=== PATIENT | female | born 1995 | race Caucasian/White ===

== ENCOUNTER → 2019-05-15 09:20 | Outpatient (CLI) | payer OTHER, SELFPAY ==
--- NOTE | 2019-05-15 09:26 | US_ITS ---
PROCEDURE: US BREAST RT COMPLETE Patient Age:24Y CLINICAL INDICATION: RT BREAST NODULE Physician feels area right lower breast COMPARISON: No exams were available for comparison FINDINGS: Survey of the entire breast performed including axillary survey. But cyst nor discrete nodule evident. No mass evident. Dense of fibrous breast tissue encounter throughout right breast, perhaps slightly more evident towards inferior right breast. This dense tissue may may account for the palpable region described. But no focal area of concern on ultrasound. 3 unremarkable benign-appearing axillary lymph nodes towards right axilla-largest 9 mm size;-these appear normal IMPRESSION: No significant findings right breast Today's right breast ultrasound reveals no cyst or solid nodule Dense fibrous tissue throughout slightly more notable towards inferior breast-and may account for the palpable region Birads 1 Negative Dictated by: Man Anton MD 05/22/2019 21:34 Electronically signed by Man Anton MD in [place] 05/22/2019 21:34
== END ==
PROVIDERS: PCP Emergency Medicine; Visit Provider Nurse Practitioner Family
DX: N63.14 Unspecified lump in the right breast, lower inner quadrant (principal)
CPT/HCPCS: 76641

== ENCOUNTER → 2021-03-20 17:13 | Outpatient (CLI) | payer BC, SELFPAY ==
[2021-03-20 17:45] LABS: Basophils # 0.1 K/mm3 (0-0.2); Basophils % 0.9 % (0.1-2.0); Eosinophils # 0.3 K/mm3 (0.0-0.4); Eosinophils % 2.6 % (0.1-12.0); Hematocrit 38.6 % (37.0-47.0); Hemoglobin 13.3 g/dL (12.2-16.2); Lymphocytes # 2.3 K/mm3 (0.7-4.5); Lymphocytes % 23.6 % (10-50); Mean Corpuscular HGB Conc 34.5 g/dL (31.8-35.4); Mean Corpuscular Hemoglobin 27.7 pg (27.0-31.2); Mean Corpuscular Volume 80.4 fl (81-99); Monocytes # 0.5 K/mm3 (0.1-1.0); Monocytes % 4.8 % (1.7-9.3); Neutrophils # 6.7 K/mm3 (1.8-7.8); Neutrophils % 68.1 % (37.0-80.0); Platelet Count 378 K/mm3 (142-424); Red Blood Count 4.81 M/mm3 (4.20-5.40); Red Cell Distribution Width 13.9 % (11.5-17.5); White Blood Count 9.8 K/mm3 (4.8-10.8)
[2021-03-20 19:13] LABS: Chloride 105 mmol/L (98-107)
[2021-03-20 19:14] LABS: Sodium 142 mmol/L (136-145)
[2021-03-20 19:16] LABS: Alanine Aminotransferase 30 U/L (12-78); Amylase 51 U/L (30-110); Aspartate Amino Transferase 26 U/L (14-36); Blood Urea Nitrogen 14 mg/dl (7-17); Carbon Dioxide 26 mmol/L (22.0-30.0); Estimated Glomerular Filt Rate 87 ml/min (>60); GFR (African American) 106 ML/MIN (>60)
[2021-03-20 19:17] LABS: Albumin Level 4.8 g/dl (3.5-5.0); Albumin/Globulin Ratio 1.7 (1.1-1.8); Alkaline Phosphatase 88 U/L (38-126); Bilirubin,Total 0.5 mg/dl (0.2-1.3); Calcium 9.5 mg/dl (8.4-10.2); Globulin 2.9 g/dL (1.3-3.2); Glucose 98 mg/dl (74-100); Lipase 88 U/L (23-300); Total Protein,Serum 7.7 g/dl (6.3-8.2)
[2021-03-20 19:50] LABS: Thyroid Stimulating Hormone 8.03 uIU/mL (0.465-4.68)
[2021-03-23 00:05] LABS: Deamidated Gliadin Abs, IgA 20 units (0-19); Deamidated Gliadin Abs, IgG 22 units (0-19); Tissue Transglutaminase IgA Ab 5 U/mL (0-3); Tissue Transglutaminase IgG Ab 3 U/mL (0-5)
[2021-03-23 15:38] LABS: Endomysial IgA Antibody Positive (Negative)
[2021-03-24 15:45] LABS: F001-IgE Egg White <0.10 kU/L (Class 0); F002-IgE Milk 2.59 kU/L (Class III); F003-IgE Codfish <0.10 kU/L (Class 0); F004-IgE Wheat <0.10 kU/L (Class 0); F010-IgE Sesame Seed <0.10 kU/L (Class 0); F013-IgE Peanut <0.10 kU/L (Class 0); F014-IgE Soybean <0.10 kU/L (Class 0); F024-IgE Shrimp <0.10 kU/L (Class 0); F256-IgE Walnut <0.10 kU/L (Class 0); F338-IgE Scallop <0.10 kU/L (Class 0)
[2021-03-26 09:53] LABS: Reticulin IgA Antibody Negative titer (Neg:<1:2.5)
== END ==
PROVIDERS: Visit Provider Physician Assistant
DX: R00.2 Palpitations (principal); R11.10 Vomiting, unspecified
CPT/HCPCS: 36415; 80053; 82150; 83516; 83690; 84443; 85025; 86003; 86008; 86255; 86256; 93225; 93226

== ENCOUNTER → 2021-08-16 13:26 | Outpatient (CLI) | payer SELFPAY | LOC: COVID.OUT 13:28 | PROVIDERS: PCP Physician Assistant; Visit Provider Nurse Practitioner Family | DX: U07.1 COVID-19 (principal) | CPT/HCPCS: C9803; U0003; U0005 ==

== ENCOUNTER 2022-02-04 18:58 | Emergency (ER) | payer BC, SELFPAY ==
[2022-02-04 19:23] VITALS: BP 115/78; PULSE 78; RESP 16; TEMP 36.9; O2SAT 98; BMI 25.7
[2022-02-04 19:31] VITALS: BP 115/78; PULSE 78; RESP 16; TEMP 36.9; O2SAT 98; BMI 29.2
--- NOTE | 2022-02-04 19:40 | HMH.EDUTC ---
[facility] Disposition Clinical Impression: Perforation of left tympanic membrane Otitis media Qualifiers: Otitis media type: suppurative Chronicity: acute Laterality: bilateral Recurrence: non-recurrent Spontaneous tympanic membrane rupture: with spontaneous rupture Qualified Code(s): H66.013 - Acute suppurative otitis media with spontaneous rupture of ear drum, bilateral Disposition: Home, Self-Care Condition on Discharge: Good Instructions: How to Instill Ear Drops, Middle Ear Infection, DI for Tympanic Membrane Perforation-Adult Additional Instructions: Drink plenty of fluids. Take tylenol or ibuprofen for pain or fever. Take the medications as directed. Use the ciprodex ear drops as directed. If your insurance will not cover these ear drops, then don't spend a bunch of money on them. The oral antibiotics will work by themselves. Follow up with your regular doctor. GO TO THE ER FOR ANY WORSENING SYMPTOMS Prescriptions: Amoxicillin/Potassium Clav [Augmentin 500mg tab] 500 mg PO TID 10 Days #30 tab Transmission Status: Pending to [id number] Ciprofloxacin HCl/Dexameth [Cipro 0.3%-Dex 0.1% Otic Susp 7.5mL] 2 drops OT BID 7 Days #1 ml Transmission Status: Pending to [id number] methylPREDNISolone [Medrol] 4 mg PO DIRECTED 6 Days #21 packet Transmission Status: Pending to [id number] Referrals: Roland Olivarez MD [Primary Care Provider] - Forms: Work/School Release Time of Disposition: 19:52 Medical Decision Making - Medical Records Medical records reviewed: No: I reviewed the patient's medical records. - Jason Inquiry Pt receiving controlled substance: No Vital Signs: 02/04/22 19:23 02/04/22 19:31 02/04/22 19:53 Temperature 98.5 F 98.5 F 98.5 F Temperature Source Oral Oral Pulse Rate 78 Pulse Rate [Right] 78 78 Respiratory Rate 16 16 16 Blood Pressure 115/78 Blood Pressure [Right Arm] 115/78 115/78 Blood Pressure Mean [Right Arm] 90 90 Blood Pressure Source [Right Arm] Automatic Cuff Blood Pressure Position [Right Arm] Sitting 02 Sat by Pulse Oximetry 98 98 Oxygen Delivery Method Room Air [facility] HPI - General Stated complaint: Hold in L Ear drum, pain can't hear Time Seen by Provider: 02/04/22 19:40 Description of Symptoms (Recalled from Triage Doc. by RN): patient comes in today with complaints of left ear pain, loss of hearing in that ear and drainage. patient does state that she has a small hole in her eardrum that has been there since she was a child HEENT Symptoms (Recalled from RN notes): Yes Resp Symptoms (Recalled from RN notes): No Skin Symptoms (Recalled from RN notes): No MS Symptoms (Recalled from RN notes): No Functional Status (Recalled from RN notes): wnl - History of Present Illness Provider Complaint: Over the past 3 days, she has had worsening left ear pain. Now, she is having pain and decreased hearing in that ear. She states that she has had some bloody drainage from that ear on her pillow in the mornings for the past 2 days. 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 Onset (ago): hour(s) - Related Data Home Medications Medication Instructions Recorded Confirmed etonogestrel 68 mg subdermal SUBDERMAL each 07/25/18 12/03/21 implant escitalopram oxalate 10 mg tablet 10 mg PO DAILY 06/27/21 12/03/21 hydroxyzine HCl 10 mg tablet 10 mg PO HS 06/27/21 12/03/21 levothyroxine 25 mcg capsule 25 mcg PO DAILY 06/27/21 12/03/21 Previous Rx's Medication Instructions Recorded estradiol 2 mg tablet 2 mg PO DAILY #30 tab 01/15/22 Amoxicillin/Potassium Clav 500 mg PO TID 10 Days #30 tab 02/04/22 [Augmentin 500mg tab] Ciprofloxacin HCl/Dexameth [Cipro 2 drops OT BID 7 Days #1 ml 02/04/22 0.3%-Dex 0.1% Otic Susp 7.5mL] methylPREDNISolone [Medrol] 4 mg PO DIRECTED 6 Days #21 02/04/22 packet Allergies Allergy/AdvReac Type Nicole
[2022-02-04 19:53] VITALS: BP 115/78; PULSE 78; RESP 16; TEMP 36.9
== END 2022-02-04 19:54 | disposition home or self-care (01) ==
PROVIDERS: Emergency Provider Nurse Practitioner Family; PCP Family Medicine
DX: H66.013 Acute suppurative otitis media with spontaneous rupture of ear drum, bilateral (principal)
CPT/HCPCS: 99212; G0463

== ENCOUNTER 2022-03-30 11:03 | Emergency (ER) | payer BC, SELFPAY ==
[2022-03-30 11:40] VITALS: BP 116/81; PULSE 64; RESP 19; TEMP 36.9; O2SAT 98; BMI 30.7
--- NOTE | 2022-03-30 12:07 | HMH.EDUTC ---
[facility] [place] Disposition Clinical Impression: URI (upper respiratory infection) Qualifiers: URI type: unspecified URI Qualified Code(s): J06.9 - Acute upper respiratory infection, unspecified Disposition: Home, Self-Care Condition on Discharge: Good Instructions: Sinusitis, DI for Sinusitis, Sore Throat, DI for Fever (Symptom) -- Adult, DI for COVID-19 (Suspected or Confirmed ) Additional Instructions: *Monitor Temp, Over the counter Motrin or Tylenol as directed/as needed Tylenol every 4 hours and Motrin every 6 hours (as long as your family doctor has told you that you can take it) for fever or pain. and straight to ER if unable to lower temp less than 101.0 after medication given *Warm salt water gargles may help to soothe the throat *Throat Lozenges *Warm fluids like tea with honey may help to soothe the throat *Sleep elevated *Humidifier/Vaporizer Follow up IMMEDIATELY for new or worsening symptoms or no Noticeable improvement over the next 48-72 hours. 911 for difficulty breathing or swallowing You were tested for today for COVID19 your test result should be back in the next 24-48 hours, you check your results on the [facility] My Health Portal Make sure to take your Vitamins Vit. C Vit D and Zinc if you can take them Prescriptions: guaiFENesin [Mucinex 600mg tablet] 1 - 2 tab PO Q12HP PRN #20 tab PRN Reason: Congestion Transmission Status: Pending to [facility] methylPREDNISolone [Medrol 4mg tab] 4 mg PO DIRECTED #21 tab Transmission Status: Pending to [facility] Cefdinir [Omnicef 300mg Capsule] 300 mg PO BID #14 cap Transmission Status: Pending to [facility] Referrals: Roland Olivarez MD [Primary Care Provider] - As needed Forms: Work/School Release Time of Disposition: 12:18 Medical Decision Making - Jason Inquiry Pt receiving controlled substance: No Jason was queried for this patient: No Vital Signs: 03/30/22 11:40 Temperature 98.5 F Temperature Source Oral Pulse Rate [Right Brachial] 64 Respiratory Rate 19 Blood Pressure [Right Arm] 116/81 Blood Pressure Mean [Right Arm] 92 Blood Pressure Source [Right Arm] Automatic Cuff Blood Pressure Position [Right Arm] Sitting 02 Sat by Pulse Oximetry 98 Oxygen Delivery Method Room Air Orders (Tests/Meds): ORDERS Category Date Time Status Covid-19 Nasal PCR ([facility]) Routine Lab 03/30/22 11:37 Ordered Medical Decision Narrative: denies [facility] [place] HPI - General Stated complaint: chest hurting, cough, can't smell Time Seen by Provider: 03/30/22 12:07 Mode of Arrival: Ambulatory Source of Information: Patient Limitations: No Limitations Description of Symptoms (Recalled from Triage Doc. by RN): PATIENT C/O CHEST CONGESTION, BODY ACHES, LOSS OF SMELL, AND HEADACHE X 1 WEEK. REPORTS A POSITIVE COVID TEST AT HOME HEENT Symptoms (Recalled from RN notes): Yes Resp Symptoms (Recalled from RN notes): No Skin Symptoms (Recalled from RN notes): No MS Symptoms (Recalled from RN notes): Yes Functional Status (Recalled from RN notes): WNL - History of Present Illness Provider Complaint: Patient states that she started getting sick over a week ago scratchy throat, sinus congestion and pressure and cough States that she took a home COVID test then and it was negative States that she hasnt got any better and was feeling worse and yesterday noticed she couldnt taste or smell anything so she took another home COVID test and it was positive so today she came in to get checked out - Related Data Home Medications Medication Instructions Recorded Confirmed escitalopram oxalate 10 mg tablet 10 mg PO DAILY 06/27/21 03/30/22 levothyroxine 25 mcg capsule 25 mcg PO DAILY 06/27/21 03/30/22 Previous Rx's Medication Instructions Recorded Cefdinir [Omnicef 300mg Capsule] 300 mg PO BID #14 cap 03/30/22 guaiFENesin [Mucinex 600mg tablet] 1 - 2 tab PO Q12HP PRN #20 tab 03/30/22 methylPREDNISolone [Medrol 4mg 4 mg PO DIRECTE
[2022-03-30 12:26] VITALS: BP 116/81; PULSE 64; RESP 19; TEMP 36.9; O2SAT 98
== END 2022-03-30 12:38 | disposition home or self-care (01) ==
PROVIDERS: Emergency Provider Nurse Practitioner; PCP Family Medicine
DX: J06.9 Acute upper respiratory infection, unspecified (principal); Z20.822 Contact with and (suspected) exposure to COVID-19
CPT/HCPCS: 99212; C9803; G0463; U0003; U0005

== ENCOUNTER 2022-06-01 15:44 | Emergency (ER) | payer BC, SELFPAY ==
--- NOTE | 2022-06-01 16:01 | EXP.UTC ---
Discharge Plan Disposition Patient Disposition: Home, Self-Care Condition: Good Prescriptions Prescriptions: New azithromycin [Zithromax] 250 mg tablet 250 mg PO UD DOSE PK Qty: 6 0RF Rx Instructions: Take two (2) tablets today, then one (1) tablet days #2 thru #5 [id number] [Bromfed DM] 2-30-10 mg/5 mL Syrup 5 ml PO Q6H PRN (Reason: Cough) Qty: 240 0RF No Action escitalopram oxalate [Lexapro] 10 mg tablet 10 mg PO DAILY levothyroxine 25 mcg capsule 25 mcg PO DAILY methylprednisolone 4 MG tablet 4 mg PO DIRECTED Qty: 21 0RF Rx Instructions: Take as directed on package instructions cefdinir 300 MG capsule 300 mg PO BID Qty: 14 0RF guaifenesin 600 MG tablet extended release 12hr 1 - 2 tab PO Q12HP PRN (Reason: Congestion) Qty: 20 0RF Referrals Follow up/Referrals: Roland Olivarez MD [Primary Care Provider] - See instructions Activity Restrictions/Add. Instructions Additional Instructions/Restrictions: Drink plenty of fluids. Take tylenol or ibuprofen for pain or fever. Take the medications as directed. Follow up with your regular doctor. GO TO THE ER FOR ANY WORSENING SYMPTOMS Clinical Impressions Clinical Impression: Sinusitis, Viral syndrome Stand Alone Forms Stand Alone Forms: Work/School Release Instructions Patient Instructions: Sinusitis, DI for Sinusitis, Coronavirus Disease 2019, Preventing the Spread of Coronavirus Discharge Instructions Discharge ED Provider: Santos Chou [facility] HPI General Stated complaint: sore throat,nausea,cough Time Seen by Provider: 06/01/22 16:01 History of Present Illness Provider Complaint: She states that for the past 4 days she has had low grade fever, chills, sinus congestion and she has felt bad. Related Data Home Medications Medication Instructions Recorded Confirmed escitalopram oxalate 10 mg tablet 10 mg PO DAILY Anxiety 06/27/21 03/30/22 (Lexapro) levothyroxine 25 mcg capsule 25 mcg PO DAILY HYPOTHYROID 06/27/21 03/30/22 Previous Rx's Medication Instructions Recorded cefdinir 300 mg capsule 300 mg PO BID #14 caps 03/30/22 guaifenesin 600 mg tablet, 1 - 2 tab PO Q12HP PRN Congestion 03/30/22 extended release 12 hr #20 tabs methylprednisolone 4 mg tablet 4 mg PO DIRECTED #21 tabs 03/30/22 azithromycin 250 mg tablet 250 mg PO UD DOSE PK #6 tabs 06/01/22 (Zithromax) wwykjaqcjblcnjr-crsjjufrwcewcon-DE 5 ml PO Q6H PRN Cough #240 mL 06/01/22 2 mg-30 mg-10 mg/5 mL oral syrup (Bromfed DM) Allergies Allergy/AdvReac Type Severity Reaction Status Date / Time No Known Allergies Allergy Verified 06/01/22 16:06 [facility] Social History Smoking Status: Never smoker alcohol intake: never substance use type: denies use current occupational status: other Travel in the last 8 weeks: None household members: family housing: house ROS Obtained: Yes All systems reviewed & no additional complaints except as documented Constitutional Constitutional: Reports chills and Reports fever(s) Eyes Eyes: Denies eye discharge ENT Ears, Nose, Mouth, and Throat: Reports as per HPI Cardiovascular Cardiovascular: Denies chest pain Respiratory Respiratory: Denies chest congestion and Reports cough Gastrointestinal Gastrointestingal: Reports nausea; Denies abdominal pain, constipation, cramping, diarrhea or vomiting Musculoskeletal Musculoskeletal: Denies arthralgias Integumentary/Breasts Skin/Breast: Denies rash Neurologic Neurologic: Denies paresthesias Physical Exam General General appearance: alert and in no apparent distress Head Head exam: atraumatic, normocephalic and normal inspection Eye Eye exam: Present normal appearance, PERRL and EOMI ENT ENT exam: Present mucous membranes moist and normal external ear exam Expanded ENT Exam TM/Canal exam: Bilateral TM: erythema and bulging Nose
[2022-06-01 16:03] VITALS: BP 122/80; PULSE 89; RESP 16; TEMP 37; O2SAT 97; BMI 30.2
[2022-06-01 16:24] LABS: UTC Influenza A Antigen Negative (Negative); UTC Influenza B Antigen Negative (Negative); UTC Strep Screen (Rapid) Negative (Negative)
[2022-06-01 17:09] VITALS: BP 122/80; PULSE 89; RESP 16; TEMP 37
== END 2022-06-01 17:10 | disposition home or self-care (01) ==
PROVIDERS: Emergency Provider Nurse Practitioner Family; PCP Family Medicine
DX: J32.9 Chronic sinusitis, unspecified (principal); B34.9 Viral infection, unspecified
CPT/HCPCS: 87804; 87880; 99212; G0463

== ENCOUNTER 2022-08-19 12:38 | Emergency (ER) | payer BC, SELFPAY ==
[2022-08-19 12:50] VITALS: BP 118/83; PULSE 96; RESP 18; TEMP 36.8; O2SAT 97; BMI 31.2
--- NOTE | 2022-08-19 12:57 | EXP.UTC ---
Discharge Plan Disposition Patient Disposition: Home, Self-Care Condition: Good Prescriptions Prescriptions: Discontinued guaifenesin 600 MG tablet extended release 12hr 1 - 2 tab PO Q12HP PRN (Reason: Congestion) Qty: 20 0RF azithromycin [Zithromax] 250 mg tablet 250 mg PO UD DOSE PK Qty: 6 0RF Rx Instructions: Take two (2) tablets today, then one (1) tablet days #2 thru #5 No Action escitalopram oxalate [Lexapro] 10 mg tablet 10 mg PO DAILY levothyroxine 25 mcg capsule 25 mcg PO DAILY Referrals Follow up/Referrals: Roland Olivarez MD [Primary Care Provider] - See instructions Activity Restrictions/Add. Instructions Additional Instructions/Restrictions: Drink plenty of fluids. Take tylenol or ibuprofen for pain or fever. Take the medications as directed. Follow up with your regular doctor. GO TO THE ER FOR ANY WORSENING SYMPTOMS Clinical Impressions Clinical Impression: Otitis media, Viral syndrome Stand Alone Forms Stand Alone Forms: Work/School Release Instructions Patient Instructions: Middle Ear Infection Discharge ED Provider: Santos Chou [facility] General Stated complaint: stomach pain, vomiting, Lt ear pain Time Seen by Provider: 08/19/22 12:57 History of Present Illness Provider Complaint: She states that for the past 2 days she has had chest congestion, sore throat, low grade fever and malaise. Related Data Home Medications Medication Instructions Recorded Confirmed escitalopram oxalate 10 mg tablet 10 mg PO DAILY Anxiety 06/27/21 08/20/22 (Lexapro) levothyroxine 25 mcg capsule 25 mcg PO DAILY HYPOTHYROID 06/27/21 08/20/22 Allergies Allergy/AdvReac Type Severity Reaction Status Date / Time No Known Allergies Allergy Verified 08/20/22 08:27 [facility] Disclaimer: The information contained in this section may have been updated after the patient was seen, as this information can be updated by other users. Social History Smoking Status: Never smoker alcohol intake: never substance use type: denies use current occupational status: other Travel in the last 8 weeks: None household members: family housing: house ROS Obtained: Yes All systems reviewed & no additional complaints except as documented Constitutional Constitutional: Denies chills, Reports fever(s) and Reports poor appetite Eyes Eyes: Denies eye discharge ENT Ears, Nose, Mouth, and Throat: Denies ear discharge, Reports otalgia, Denies hearing loss, Denies sinus pain and Reports sore throat Cardiovascular Cardiovascular: Denies chest pain and Denies dyspnea Respiratory Respiratory: Denies chest congestion, Reports cough and Denies dyspnea Gastrointestinal Gastrointestingal: Denies abdominal pain, diarrhea, nausea or vomiting Musculoskeletal Musculoskeletal: Denies arthralgias Integumentary/Breasts Skin/Breast: Denies rash Physical Exam General General appearance: alert and in no apparent distress Head Head exam: atraumatic, normocephalic and normal inspection Eye Eye exam: Present normal appearance; Absent PERRL or EOMI ENT ENT exam: Present mucous membranes moist and normal external ear exam Expanded ENT Exam TM/Canal exam: Bilateral TM: erythema, bulging and effusion Nose exam: Absent sinus tenderness Nasal speculum exam: Bilateral: normal Mouth exam: Present normal external inspection and other; Absent drooling Teeth exam: Present normal inspection Throat exam: Present tonsillar erythema and tonsillomegaly Neck Neck exam: Present normal inspection, full ROM and trachea midline; Absent tenderness, meningismus or lymphadenopathy Chest Chest inspection: Present normal inspection and symmetric chest wall rise; Absent tenderness Respiratory Respiratory exam: Present normal lung sounds bilaterally; Absent respiratory distress, wheezes or stridor Cardiovascular Cardiovascular exam: Present regular
[2022-08-19 14:10] VITALS: BP 118/83; PULSE 96; RESP 19; TEMP 36.8; O2SAT 97
== END 2022-08-19 14:10 | disposition home or self-care (01) ==
PROVIDERS: Emergency Provider Nurse Practitioner Family; PCP Family Medicine
DX: H66.90 Otitis media, unspecified, unspecified ear (principal); B34.9 Viral infection, unspecified
CPT/HCPCS: 99212; G0463

== ENCOUNTER 2022-08-20 08:00 | Emergency (ER) | payer BC, SELFPAY ==
[2022-08-20 08:07] VITALS: BP 141/92; PULSE 93; RESP 19; TEMP 37.1; O2SAT 98; BMI 32.5
--- NOTE | 2022-08-20 08:14 | EXP.UTC ---
Discharge Plan Disposition Patient Disposition: Home, Self-Care Condition: Good Prescriptions Prescriptions: No Action escitalopram oxalate [Lexapro] 10 mg tablet 10 mg PO DAILY levothyroxine 25 mcg capsule 25 mcg PO DAILY Referrals Follow up/Referrals: Roland Olivarez MD [Primary Care Provider] - See instructions Activity Restrictions/Add. Instructions Additional Instructions/Restrictions: Drink plenty of fluids. Take tylenol or ibuprofen for pain or fever. Follow up with your regular doctor. GO TO THE ER FOR ANY WORSENING SYMPTOMS Continue the medications that were prescribed yesterday. Clinical Impressions Clinical Impression: Viral syndrome, Otitis media Instructions Patient Instructions: DI for Viral Syndrome Discharge ED Provider: [place] Ch[place] [facility] [place] General Stated complaint: flu test body aches sore throat Time Seen by Provider: 08/20/22 08:13 History of Present Illness Provider Complaint: She is back today because during the night she had worsening chills, body aches and fever. She needs to be tested for influenza. Related Data Home Medications Medication Instructions Recorded Confirmed escitalopram oxalate 10 mg tablet 10 mg PO DAILY Anxiety 06/27/21 08/20/22 (Lexapro) levothyroxine 25 mcg capsule 25 mcg PO DAILY HYPOTHYROID 06/27/21 08/20/22 Allergies Allergy/AdvReac Type Severity Reaction Status Date / Time No Known Allergies Allergy Verified 08/20/22 08:27 [facility] Disclaimer: The information contained in this section may have been updated after the patient was seen, as this information can be updated by other users. Social History Smoking Status: Never smoker alcohol intake: never substance use type: denies use current occupational status: other Travel in the last 8 weeks: None household members: family housing: house ROS Obtained: Yes All systems reviewed & no additional complaints except as documented Constitutional Constitutional: Reports chills and Reports fever(s) Eyes Eyes: Denies eye discharge ENT Ears, Nose, Mouth, and Throat: Reports as per HPI Cardiovascular Cardiovascular: Denies chest pain Respiratory Respiratory: Denies chest congestion and Reports cough Gastrointestinal Gastrointestingal: Reports nausea; Denies abdominal pain, constipation, cramping, diarrhea or vomiting Musculoskeletal Musculoskeletal: Denies arthralgias Integumentary/Breasts Skin/Breast: Denies rash Neurologic Neurologic: Denies paresthesias Physical Exam General General appearance: alert and in no apparent distress Head Head exam: atraumatic, normocephalic and normal inspection Eye Eye exam: Present normal appearance; Absent PERRL or EOMI ENT ENT exam: Present mucous membranes moist and normal external ear exam Expanded ENT Exam TM/Canal exam: Bilateral TM: erythema, bulging and effusion Nose exam: Absent sinus tenderness Nasal speculum exam: Bilateral: normal Mouth exam: Present normal external inspection and other; Absent drooling Teeth exam: Present normal inspection Throat exam: Present tonsillar erythema and tonsillomegaly Neck Neck exam: Present normal inspection, full ROM and trachea midline; Absent tenderness, meningismus or lymphadenopathy Chest Chest inspection: Present normal inspection and symmetric chest wall rise; Absent tenderness Respiratory Respiratory exam: Present normal lung sounds bilaterally; Absent respiratory distress, wheezes or stridor Cardiovascular Cardiovascular exam: Present regular rate, normal rhythm and normal heart sounds; Absent tachycardia or irregular rhythm Abdominal Exam Abdominal exam: Present soft and normal bowel sounds; Absent distention, tenderness, guarding, rebound or rigidity Extremities Exam Extremities exam: Present normal inspection and normal capillary refill; Absent tenderness, joint swelling or calf tenderness Back Exam B
[2022-08-20 08:26] LABS: UTC Influenza A Antigen Negative (Negative); UTC Influenza B Antigen Negative (Negative)
[2022-08-20 08:40] VITALS: BP 141/92; PULSE 93; RESP 19; TEMP 37.1; O2SAT 98
== END 2022-08-20 08:40 | disposition home or self-care (01) ==
PROVIDERS: Emergency Provider Nurse Practitioner Family; PCP Family Medicine
DX: H66.90 Otitis media, unspecified, unspecified ear (principal); B34.9 Viral infection, unspecified
CPT/HCPCS: 87804; 99212; G0463

== ENCOUNTER 2022-09-22 16:37 | Emergency (ER) | payer OTHER, SELFPAY ==
--- NOTE | 2022-09-22 17:32 | EXP.UTC ---
Discharge Plan Disposition Patient Disposition: Still a Patient Condition: Fair Prescriptions Prescriptions: No Action escitalopram oxalate [Lexapro] 10 mg tablet 10 mg PO DAILY levothyroxine 25 mcg capsule 25 mcg PO DAILY Referrals Follow up/Referrals: Roland Olivarez MD [Primary Care Provider] - See instructions Clinical Impressions Clinical Impression: Closed head injury Discharge ED Provider: Josh Jones [facility] [place] HPI General Stated complaint: AO hit head @ 0400 at work Time Seen by Provider: 09/22/22 17:31 History of Present Illness Provider Complaint: She states that she accidentally bumped her head into a set of metal stairs at work today. Since then she has vomited X2, had head ache, and she has felt dizzy. She also had a laceration on her forehead. She denies neck pain and other injury. Related Data Home Medications Medication Instructions Recorded Confirmed escitalopram oxalate 10 mg tablet 10 mg PO DAILY Anxiety 06/27/21 09/22/22 (Lexapro) levothyroxine 25 mcg capsule 25 mcg PO DAILY HYPOTHYROID 06/27/21 09/22/22 Allergies Allergy/AdvReac Type Severity Reaction Status Date / Time No Known Allergies Allergy Verified 09/22/22 17:50 [facility] Disclaimer: The information contained in this section may have been updated after the patient was seen, as this information can be updated by other users. Social History Smoking Status: Never smoker alcohol intake: never substance use type: denies use current occupational status: other Travel in the last 8 weeks: None household members: family housing: house ROS Obtained: Yes All systems reviewed & no additional complaints except as documented Constitutional Constitutional: Denies chills and Denies fever(s) Eyes Eyes: Denies blurry vision, Denies change in vision, Denies diplopia and Denies eye discharge ENT Ears, Nose, Mouth, and Throat: Denies dizziness, Denies otalgia and Denies sore throat Cardiovascular Cardiovascular: Denies chest pain Respiratory Respiratory: Denies shortness of breath, Denies chest congestion, Denies cough, Denies stridor and Denies wheezing Gastrointestinal Gastrointestingal: Reports nausea and vomiting Musculoskeletal Musculoskeletal: Reports system reviewed and no additional complaints, except as documented and Denies arthralgias Integumentary/Breasts Skin/Breast: Denies rash Neurologic Neurologic: Denies dizziness and Denies paresthesias Allergic/Immunologic Allergic/Immunologic: Denies wheezing Physical Exam General General appearance: alert and in no apparent distress Head Head exam: atraumatic, normocephalic and normal inspection Eye Eye exam: Present normal appearance, PERRL and EOMI ENT ENT exam: Present normal exam, normal oropharynx, mucous membranes moist, TM's normal bilaterally and normal external ear exam Neck Neck exam: Present normal inspection, full ROM and trachea midline; Absent meningismus or lymphadenopathy Chest Chest inspection: Present normal inspection and symmetric chest wall rise; Absent tenderness Respiratory Respiratory exam: Present normal lung sounds bilaterally; Absent respiratory distress Cardiovascular Cardiovascular exam: Present regular rate and normal rhythm; Absent JVD Abdominal Exam Abdominal exam: Present soft and normal bowel sounds; Absent distention, tenderness or guarding Extremities Exam Extremities exam: Present normal inspection, full ROM and normal capillary refill; Absent calf tenderness Back Exam Back exam: Present normal inspection; Absent tenderness Neurological Exam Neurological exam: Present alert, oriented X3, CN II-XII intact, normal gait and reflexes normal; Absent motor sensory deficit Expanded Neurological Exam Patient oriented to: Present person, place and time Speech: Present fluid speech Cranial nerves: Normal: EOM function (II, III, IV, ), facial sensation (V), facial p
[2022-09-22 17:43] VITALS: BP 140/92; PULSE 81; RESP 20; TEMP 37.1; O2SAT 100; BMI 31.7
--- NOTE | 2022-09-22 18:48 | CT_ITS ---
PROCEDURE INFORMATION: Exam: CT Head Without Contrast Exam date and time: 09/22/2022 6:55 PM Age: 27 years old Clinical indication: Injury or trauma; Other: Bumped forehead this morning. Work related; Blunt trauma (contusions or hematomas); Patient HX: Bumped head this morning, vomited twice today. ; Additional info: Head injury TECHNIQUE: Imaging protocol: Computed tomography of the head without contrast. Radiation optimization: All CT scans at this facility use at least one of these dose optimization techniques: automated exposure control; mA and/or kV adjustment per patient size (includes targeted exams where dose is matched to clinical indication); or iterative reconstruction. Other protocol: This patient has received 0 known CTs and 0 known cardiac nuclear medicine studies in the 12 months prior to the current study. COMPARISON: No relevant prior studies available. FINDINGS: Brain: Normal. No hemorrhage. Unremarkable white matter. No mass effect. Cerebral ventricles: No ventriculomegaly. Paranasal sinuses: Air-fluid levels are seen in the bilateral maxillary sinuses with moderate right and mild left maxillary sinus mucosal thickening. The ethmoids are also nearly completely opacified. There are also air-fluid levels in the sphenoid with mild mucosal thickening. Mastoid air cells: Visualized mastoid air cells are well aerated. Bones/joints: No acute osseous injury. Soft tissues: Small inferior left frontal scalp soft tissue hematoma with associated laceration injury. IMPRESSION: 1. No acute intracranial abnormality. Small inferior left frontal scalp soft tissue hematoma. 2. Findings of acute maxillary and sphenoid sinusitis.
--- NOTE | 2022-09-22 19:31 | HMH.EDGENADL ---
Discharge Plan Disposition Patient Disposition: Home, Self-Care Condition: Good Prescriptions Prescriptions: New amoxicillin-pot clavulanate [Augmentin] 500-125 mg tablet 1 tab PO Q8H Qty: 30 0RF No Action escitalopram oxalate [Lexapro] 10 mg tablet 10 mg PO DAILY levothyroxine 25 mcg capsule 25 mcg PO DAILY Referrals Follow up/Referrals: Roland Olivarez MD [Primary Care Provider] - See instructions Activity Restrictions/Add. Instructions Additional Instructions/Restrictions: Augmentin as prescribed for sinusitis. You may take Zofran for nausea. Tylenol as needed for pain. Additional instructions for HEAD INJURY: See your physician as soon as possible for further evaluation. Return immediately if severe headache, vomiting, problems with vision or speech, numbness or weakness of the extremities, or severe neck pain. Clinical Impressions Clinical Impression: Concussion, Forehead laceration, Sinusitis Instructions Patient Instructions: DI for Concussion, DI for Sinusitis, DI for Laceration Repair-Skin Glue Discharge ED Provider: Johs Jones General Adult HPI General Stated complaint: AO hit head @ 0400 at work Time Seen by Provider: 09/22/22 19:31 Mode of Arrival: Ambulatory Source of Information: Patient Limitations: No Limitations Description of Symptoms (Recalled from ER Triage Doc. by RN): hit head at work, left side of forehead has a small cut, but did vomit twice History of Present Illness HPI narrative: Patient states that she slipped on wet floor and cut her forehead on a metal step. No loss of consciousness. She does have pain at the site of the injury. 2 episodes of vomiting. Has lightheadedness. Denies neck pain. Denies numbness or weakness of extremities. She is not on any blood thinners. Denies any other injuries. Related Data Home Medications Medication Instructions Recorded Confirmed escitalopram oxalate 10 mg tablet 10 mg PO DAILY Anxiety 06/27/21 09/22/22 (Lexapro) levothyroxine 25 mcg capsule 25 mcg PO DAILY HYPOTHYROID 06/27/21 09/22/22 Previous Rx's Medication Instructions Recorded amoxicillin 500 mg-potassium 1 tab PO Q8H #30 tabs 09/22/22 clavulanate 125 mg tablet (Augmentin) Allergies Allergy/AdvReac Type Severity Reaction Status Date / Time No Known Allergies Allergy Verified 09/22/22 17:50 [facility] Disclaimer: The information contained in this section may have been updated after the patient was seen, as this information can be updated by other users. Social History Smoking Status: Never smoker alcohol intake: never substance use type: denies use current occupational status: other Travel in the last 8 weeks: None household members: family housing: house ROS Obtained: Yes Systems reviewed as appropriate & no additional complaints except as documented Constitutional Constitutional: Denies fever(s) and Denies weakness ENT Ears, Nose, Mouth, and Throat: Denies neck pain and Reports sore throat Cardiovascular Cardiovascular: Denies chest pain Respiratory Respiratory: Denies shortness of breath Gastrointestinal Gastrointestingal: Reports nausea and vomiting; Denies abdominal pain Musculoskeletal Musculoskeletal: Denies back pain, Denies neck pain and Denies numbness Integumentary/Breasts Skin/Breast: Reports wounds Neurologic Neurologic: Denies numbness and Denies weakness Physical Exam General General appearance: alert and in no apparent distress Expanded Head Exam Head image: 1. 1.5 cm laceration, well approximated, no active bleeding Eye Eye exam: Present normal appearance, PERRL and EOMI ENT ENT exam: Present TM's normal bilaterally Neck Neck exam: Present normal inspection and full ROM; Absent tenderness Chest Chest inspection: Present normal inspection and symmetric chest wall rise Respiratory Respiratory exam: Absent respiratory dis
[2022-09-22 19:53] VITALS: BP 134/71; PULSE 73; RESP 19; TEMP 36.8; O2SAT 97
== END 2022-09-22 20:12 | disposition home or self-care (01) ==
LOC: ER 16:40 → UTC 16:41 → ER 19:00
PROVIDERS: Emergency Provider Emergency Medicine; PCP Family Medicine
DX: S06.0X0A Concussion without loss of consciousness, initial encounter (principal); S01.81XA Laceration without foreign body of other part of head, initial encounter; J01.90 Acute sinusitis, unspecified; W01.0XXA Fall on same level from slipping, tripping and stumbling without subsequent striking against object, initial encounter; Y99.0 Civilian activity done for income or pay
CPT/HCPCS: 70450; 90471; 90715; 99284

== ENCOUNTER 2022-09-30 06:44 | Emergency (ER) | payer OTHER, SELFPAY ==
[2022-09-30 06:46] VITALS: BP 117/85; PULSE 82; RESP 17; TEMP 36.4; O2SAT 99; BMI 30.9
--- NOTE | 2022-09-30 07:05 | CT_ITS ---
FINAL REPORT TECHNIQUE: Thin section axial images were obtained from skull base to vertex without contrast. Coronal reconstruction images were obtained from the axial data. Exam was performed using dose reduction technique. CLINICAL HISTORY: HEAD INJURY several days ago. today vomiting. headache. pain COMPARISON: 09/22/2022 FINDINGS: There is no mass effect or midline shift. There is no hydrocephalus. There is no intracranial hemorrhage. The posterior fossa is without acute abnormality. The basilar cisterns are preserved. There is no change in the partial opacification of the maxillary sinuses, sphenoid and ethmoid air cells. There has been interval improvement in the left frontal scalp hematoma. The subcutaneous air has resolved. No skull fracture is identified. IMPRESSION: No acute intracranial abnormality. Reviewed, Interpreted and Dictated by Norah Castro MD Transcribed by Marilyn Garduno Authenticated and [facility]
[2022-09-30 07:27] LABS: Urine Pregnancy, HCG Qual. Negative (Negative)
--- NOTE | 2022-09-30 07:32 | PC.NURSE ---
PT TO CT AT THIS TIME
--- NOTE | 2022-09-30 07:32 | PC.NURSE ---
pt to radiology
--- NOTE | 2022-09-30 07:37 | PC.NURSE ---
PT RETURNED FROM CT
[2022-09-30 07:39] VITALS: BP 118/73; PULSE 64; O2SAT 97
--- NOTE | 2022-09-30 07:46 | PC.NURSE ---
DR LIND AT BEDSIDE
--- NOTE | 2022-09-30 07:51 | HMH.EDGENADL ---
Discharge Plan Disposition Patient Disposition: Home, Self-Care Condition: Good Prescriptions Prescriptions: New hhpdcwkiux-hjgbnodkhydii-qahv [Fioricet] 50-300-40 mg capsule 1 cap PO Q6H PRN (Reason: pain) Qty: 10 0RF No Action escitalopram oxalate [Lexapro] 10 mg tablet 10 mg PO DAILY levothyroxine 25 mcg capsule 25 mcg PO DAILY amoxicillin-pot clavulanate [Augmentin] 500-125 mg tablet 1 tab PO Q8H Referrals Follow up/Referrals: Roland Olivarez MD [Primary Care Provider] - See instructions Activity Restrictions/Add. Instructions Additional Instructions/Restrictions: Rest. Avoid bright lights and loud noises and excessive screen time. Follow-up with your primary care provider should symptoms persist. Clinical Impressions Clinical Impression: Concussion Stand Alone Forms Stand Alone Forms: Work/School Release Instructions Patient Instructions: DI for Concussion Discharge ED Provider: Migdalia (ED)Jesus General Adult HPI General Chief complaint: Head Injury Stated complaint: WC 09/22/22 concussion, dizzy Time Seen by Provider: 09/30/22 07:44 Mode of Arrival: Ambulatory Source of Information: Patient Limitations: No Limitations Description of Symptoms (Recalled from ER Triage Doc. by RN): PT WITH C/O VOMITING, DIZZINESS, HEADACHE BEHIND EYES, LIGHT SENSITIVITY AND FATIGUE X 2 DAYS. PT SEEN LAST WEDNESDAY FOR HEAD INJURY AT WORK, UNKNOWN LOC. BRUSING NOTED UNDER LEFT EYE AND FOREHEAD History of Present Illness HPI narrative: Patient presents complaining of headache and dizziness that started earlier today. 1 week ago she sustained head injury while at work when she was struck with a metal object. She describes a headache as a 7 or 8 on a 0-to-10 scale and worse with loud noises. She did have symptoms associated vomiting this morning. She denies fever. She denies neck discomfort or focal neurological symptoms. Related Data Home Medications Medication Instructions Recorded Confirmed escitalopram oxalate 10 mg tablet 10 mg PO DAILY Anxiety 06/27/21 09/30/22 (Lexapro) levothyroxine 25 mcg capsule 25 mcg PO DAILY HYPOTHYROID 06/27/21 09/30/22 amoxicillin 500 mg-potassium 1 tab PO Q8H Infection 09/30/22 09/30/22 clavulanate 125 mg tablet (Augmentin) Previous Rx's Medication Instructions Recorded tegmhwsfpv-penvzicojsthv-ftrhyduw 1 cap PO Q6H PRN pain #10 caps 09/30/22 50 mg-300 mg-40 mg capsule (Fioricet) Allergies Allergy/AdvReac Type Severity Reaction Status Date / Time No Known Allergies Allergy Verified 09/22/22 17:50 [facility] Disclaimer: The information contained in this section may have been updated after the patient was seen, as this information can be updated by other users. Medical History Thyroid disease Family History Other No significant family history Social History Smoking Status: Never smoker alcohol intake: never substance use type: denies use current occupational status: employed and other Travel in the last 8 weeks: None household members: family housing: house ROS Obtained: Yes All systems reviewed & no additional complaints except as documented Physical Exam General General appearance: alert and in no apparent distress Head Head exam: other (There is a healing 1.5 cm laceration to the left forehead.) Eye Eye exam: Present normal appearance, PERRL and EOMI ENT ENT exam: Present normal exam, normal oropharynx, mucous membranes moist, TM's normal bilaterally and normal external ear exam Neck Neck exam: Present normal inspection, full ROM and trachea midline; Absent meningismus or lymphadenopathy Chest Chest inspection: Present normal inspection and symmetric chest wall rise; Absent tenderness Respiratory Respiratory exam: Present normal lung sounds
[2022-09-30 08:00] VITALS: BP 117/80; PULSE 66; O2SAT 98
[2022-09-30 08:30] VITALS: BP 113/75; PULSE 60; O2SAT 97
--- NOTE | 2022-09-30 08:44 | PC.NURSE ---
DR LIND AT BEDSIDE TO DISCUSS POC
[2022-09-30 08:50] VITALS: BP 122/83; PULSE 64; RESP 17; TEMP 36.7; O2SAT 99
== END 2022-09-30 08:50 | disposition home or self-care (01) ==
PROVIDERS: Emergency Provider Emergency Medicine; PCP Family Medicine
DX: S06.0X0A Concussion without loss of consciousness, initial encounter (principal); W22.8XXA Striking against or struck by other objects, initial encounter; Y99.0 Civilian activity done for income or pay; E07.9 Disorder of thyroid, unspecified
CPT/HCPCS: 70450; 81025; 96374; 96375; 99284

== ENCOUNTER 2022-12-02 10:09 | Emergency (ER) | payer OTHER, BC, SELFPAY ==
[2022-12-02 10:10] VITALS: BP 122/73; PULSE 85; RESP 17; TEMP 36.7; O2SAT 99; BMI 30.7
--- NOTE | 2022-12-02 10:35 | HMH.EDGENADL ---
Discharge Plan Disposition Patient Disposition: Home, Self-Care Condition: Good Prescriptions Prescriptions: No Action escitalopram oxalate [Lexapro] 10 mg tablet 10 mg PO DAILY levothyroxine 25 mcg capsule 25 mcg PO DAILY amoxicillin-pot clavulanate [Augmentin] 500-125 mg tablet 1 tab PO Q8H [id number]-zhhgqhfgiqhdi-fkpq [Fioricet] 50-300-40 mg capsule 1 cap PO Q6H PRN (Reason: pain) Qty: 10 0RF Referrals Follow up/Referrals: Roland Olivarez MD [Primary Care Provider] - See instructions Clinical Impressions Clinical Impression: Dehydration Discharge ED Provider: Zelalem Jha General Adult HPI General Chief complaint: Headache Stated complaint: Headache, dizzy, fatigue, prior concuss 2 mo. ago Time Seen by Provider: 12/02/22 10:17 Mode of Arrival: Ambulatory History of Present Illness HPI narrative: This is a 27-year-old female with history of hypothyroidism, recent concussion at work after head trauma presenting with fatigue. Patient states that she had a concussion a couple of months prior, but also has been more tired as of late. Because of her hypothyroidism, had labs drawn just a few days prior to arrival, they were negative, reportedly, but not in our system. Patient states for the past month or so, she has been progressively tired and having intermittent headaches. Currently having a headache that is mild in intensity, does not radiate, but makes her feel like I am on a boat. She is constantly tired, states that she could fall asleep just about anywhere. Nothing in particular makes her headache better of the medication she received previously at the ER. No neurologic deficits, vision changes, chest pain, shortness of breath, any other trauma, or any other concerns. Related Data Home Medications Medication Instructions Recorded Confirmed escitalopram oxalate 10 mg tablet 10 mg PO DAILY Anxiety 06/27/21 09/30/22 (Lexapro) levothyroxine 25 mcg capsule 25 mcg PO DAILY HYPOTHYROID 06/27/21 09/30/22 amoxicillin 500 mg-potassium 1 tab PO Q8H Infection 09/30/22 09/30/22 clavulanate 125 mg tablet (Augmentin) Previous Rx's Medication Instructions Recorded vjirrpckcd-lboqpawdmgkfc-rqlirwtf 1 cap PO Q6H PRN pain #10 caps 09/30/22 50 mg-300 mg-40 mg capsule (Fioricet) Allergies Allergy/AdvReac Type Severity Reaction Status Date / Time No Known Allergies Allergy Verified 09/22/22 17:50 [facility] Disclaimer: The information contained in this section may have been updated after the patient was seen, as this information can be updated by other users. Medical History Thyroid disease Family History Other No significant family history Social History Smoking Status: Never smoker alcohol intake: never substance use type: denies use current occupational status: employed and other Travel in the last 8 weeks: None household members: family housing: house ROS Obtained: Yes All systems reviewed & no additional complaints except as documented Physical Exam General General appearance: alert and in no apparent distress Head Head exam: atraumatic, normocephalic and normal inspection Eye Eye exam: Present normal appearance, PERRL and EOMI ENT ENT exam: Present normal exam, normal oropharynx, mucous membranes moist, TM's normal bilaterally and normal external ear exam Neck Neck exam: Present normal inspection, full ROM and trachea midline; Absent meningismus or lymphadenopathy Chest Chest inspection: Present normal inspection and symmetric chest wall rise; Absent tenderness Respiratory Respiratory exam: Present normal lung sounds bilaterally; Absent respiratory distress Cardiovascular Cardiovascular exam: Present regular rate and normal rhythm; Absent JVD Abdominal Exam Abdominal exam: Present
--- NOTE | 2022-12-02 10:58 | PC.NURSE ---
pt's urine sent to lab
[2022-12-02 11:08] LABS: Basophils # 0.1 K/mm3 (0-0.2); Basophils % 0.5 % (0.1-2.0); Eosinophils # 0.4 K/mm3 (0.0-0.4); Eosinophils % 3.5 % (0.1-12.0); Hematocrit 39.5 % (37.0-47.0); Hemoglobin 12.9 g/dL (12.2-16.2); Lymphocytes # 1.8 K/mm3 (0.7-4.5); Lymphocytes % 18.3 % (10-50); Mean Corpuscular HGB Conc 32.6 g/dL (31.8-35.4); Mean Corpuscular Hemoglobin 28.3 pg (27.0-31.2); Mean Corpuscular Volume 86.9 fl (81-99); Mean Platelet Volume 7.6 fl (7.4-10.4); Monocytes # 0.4 K/mm3 (0.1-1.0); Monocytes % 3.5 % (1.7-9.3); Neutrophils # 7.4 K/mm3 (1.8-7.8); Neutrophils % 74.2 % (37.0-80.0); Platelet Count 373 K/mm3 (142-424); Red Blood Count 4.55 M/mm3 (4.20-5.40); Red Cell Distribution Width 13.7 % (11.5-17.5)
[2022-12-02 11:13] LABS: Chloride 104 mmol/L (98-107); Potassium 4.2 mmoL/L (3.5-5.1); Sodium 137 mmol/L (136-145)
[2022-12-02 11:15] LABS: Alanine Aminotransferase 26 U/L (12-78); Aspartate Amino Transferase 31 U/L (14-36); Blood Urea Nitrogen 15 mg/dl (7-17); Creatinine Clearance Estimated 161 mL/min (50-200); Estimated Glomerular Filt Rate 101 ml/min (>60); GFR (African American) 122 ML/MIN (>60)
[2022-12-02 11:16] LABS: Albumin Level 4.2 g/dl (3.5-5.0); Albumin/Globulin Ratio 1.5 (1.1-1.8); Alkaline Phosphatase 81 U/L (38-126); Anion Gap 11.2 mEq/L (5-15); Bilirubin,Total 0.5 mg/dl (0.2-1.3); Calcium 8.9 mg/dl (8.4-10.2); Carbon Dioxide 26 mmol/L (22.0-30.0); Globulin 2.8 g/dL (1.3-3.2); Glucose 98 mg/dl (74-100)
[2022-12-02 11:34] LABS: T4 (Thyroxine) 9.1 ug/dl (5.53-11.0)
[2022-12-02 11:48] LABS: Thyroid Stimulating Hormone 1.41 uIU/mL (0.465-4.68)
[2022-12-02 12:40] VITALS: BP 121/71; PULSE 78; RESP 17; TEMP 37.1; O2SAT 97
[2022-12-02 14:10] LABS: Urine Pregnancy, HCG Qual. Negative (Negative)
== END 2022-12-02 12:41 | disposition home or self-care (01) ==
PROVIDERS: Emergency Provider Emergency Medicine; PCP Family Medicine
DX: E86.0 Dehydration (principal); R51.9 Headache, unspecified; R42 Dizziness and giddiness
CPT/HCPCS: 80053; 81025; 84436; 84443; 85025; 96374; 96375; 99284; 99285

== ENCOUNTER 2023-08-21 10:35 | Emergency (ER) | payer SELFPAY ==
[2023-08-21 11:00] VITALS: BP 125/76; PULSE 74; RESP 18; TEMP 36.7; O2SAT 98; BMI 32.4
--- NOTE | 2023-08-21 11:14 | EXP.UTC ---
Discharge Plan Disposition Patient Disposition: Home, Self-Care Condition: Good Prescriptions Prescriptions: New ondansetron 4 mg tablet,disintegrating 4 mg PO Q8H PRN (Reason: nausea and vomiting) Qty: 10 0RF No Action escitalopram oxalate [Lexapro] 10 mg tablet 10 mg PO DAILY levothyroxine 25 mcg capsule 25 mcg PO DAILY Referrals Follow up/Referrals: Renetta Palma PA [Primary Care Provider] - See instructions Activity Restrictions/Add. Instructions Additional Instructions/Restrictions: Drink extra fluids with and between meals. If you have difficulty drinking, try very small amounts of water or suck on ice chips. ? Avoid fruit juices, as these do not replace minerals and can actually increase diarrhea. ? Children and adults can use sports drinks to replenish electrolytes. Younger children and infants should use products formulated for children, like oral rehydration solutions. ? Eat food in small amounts and let your stomach recover. ? Get lots of rest. You may feel tired or weak. ? No greasy or fried foods for the next 24-48 hours BRAT diet Bananas Rice Apples and Shallow Water ? Make sure to drink plenty of liquids ? Return if needed ? Straight to ER if any life threatening symptoms ? Zofran as prescribed ? You was given an outpatient order for diarrhea panel, please collect specimen and bring back to outpatient lab then call back to the [facility] or follow up with family doctor for results ? Follow up with family doctor in the next 48-72 hours if no improvement or any worsening of symptoms Clinical Impressions Clinical Impression: Viral syndrome Stand Alone Forms Stand Alone Forms: Work/School Release Instructions Patient Instructions: Diarrhea, Nausea and Vomiting-Adult, Ondansetron Discharge ED Provider: Kenyetta Chicas [facility] [place] HPI General Stated complaint: diarrhea, vomiting Mode of Arrival: Ambulatory Source of Information: Patient Limitations: No Limitations Time Seen by Provider: 08/21/23 11:14 Description of Symptoms (Recalled from Triage Doc. by RN): PATIENT C/O VOMITING, BODY ACHES, AND DIARRHEA SINCE WEDNESDAY HEENT Symptoms (Recalled from RN notes): No Resp Symptoms (Recalled from RN notes): No Skin Symptoms (Recalled from RN notes): No MS Symptoms (Recalled from RN notes): No Functional Status (Recalled from RN notes): WNL History of Present Illness Provider Complaint: Patient states that she has not been feeling well since Wednesday States that she has been having body aches, and vomiting and diarrhea States that she does have Celiacs but hasnt eaten anything that she is aware of that she wasnt suppose to or been exposed to Gluten States that today she was still not feeling well so she came in to get checked worried she may have flu or something Related Data Home Medications Medication Instructions Recorded Confirmed escitalopram oxalate 10 mg tablet 10 mg PO DAILY Anxiety 06/27/21 08/21/23 (Lexapro) levothyroxine 25 mcg capsule 25 mcg PO DAILY HYPOTHYROID 06/27/21 08/21/23 Previous Rx's Medication Instructions Recorded ondansetron 4 mg disintegrating 4 mg PO Q8H PRN nausea and 08/21/23 tablet vomiting #10 tabs Allergies Allergy/AdvReac Type Severity Reaction Status Date / Time No Known Allergies Allergy Verified 09/22/22 17:50 Worker's Comp Is this a Worker's Comp case?: No [facility] Disclaimer: The information contained in this section may have been updated after the patient was seen, as this information can be updated by other users. Medical History (Updated 08/21/23 @ 11:17 by Kenyetta Chicas APRN) Anxiety Depression Thyroid disease Surgical History (Updated 08/21/23 @ 11:14 by Armida Ashby RN) History of tympanostomy tube placement Family History Other No significant family history Social History Smoking Status: Never smoker alcohol intake: never substance use type: denies use current occupational status: employed and other Travel in the last 8 weeks: None household members: family housing: house ROS Obtained: Yes All systems reviewed & no additional complaints except as documented and Yes Systems reviewed as appropriate & no additional complaints except as documented Constitutional Constitutional: Reports system reviewed and no additional complaints, except as documented, Reports as per HPI, Reports body ache, Denies chills, Denies fatigue, Denies fever(s) and Denies headache(s) ENT Ears, Nose, Mouth, and Throat: Reports system reviewed and no additional complaints, except as documented, Reports as per HPI and Denies headache(s) Cardiovascular Cardiovascular: Reports system reviewed and no additional complaints, except as documented and Reports as per HPI Respiratory Respiratory: Reports system reviewed and no additional complaints, except as documented and Reports as per HPI Gastrointestinal Gastrointestingal: Reports system reviewed and no additional complaints, except as documented, as per HPI, diarrhea, nausea and vomiting; Denies abdominal pain Comments: states that she is on her period right now Genitourinary Female Genitourinary: Reports system reviewed and no additional complaints, except as documented and Reports as per HPI Musculoskeletal Musculoskeletal: Reports system reviewed and no additional complaints, except as documented and Reports as per HPI Neurologic Neurologic: Denies headache(s) Endocrine Endocrine: Denies fatigue Physical Exam General General appearance: alert and in no apparent distress ENT ENT exam: Present mucous membranes moist Expanded ENT Exam Nose exam: Absent sinus tenderness Throat exam: Present normal inspection Respiratory Respiratory exam: Present normal lung sounds bilaterally; Absent respiratory distress or wheezes Cardiovascular Cardiovascular exam: Present regular rate and normal heart sounds Abdominal Exam Abdominal exam: Present soft and normal bowel sounds; Absent distention or tenderness Neurological Exam Neurological exam: Present alert, oriented X3 and normal gait Medical Decision Making Jason Inquiry Pt receiving controlled substance: No Jason was queried for this patient: No Vital Signs: 08/21/23 11:00 Temperature 98.1 F Temperature Source Oral Pulse Rate [Left Brachial] 74 Respiratory Rate 18 Blood Pressure [Left Arm] 125/76 Blood Pressure Mean [Left Arm] 92 Blood Pressure Source [Left Arm] Automatic Cuff Blood Pressure Position [Left Arm] Sitting 02 Sat by Pulse Oximetry 98 Oxygen Delivery Method Room Air Lab Data Lab results reviewed: Yes I reviewed the patient's lab results. Medical Decision Narrative: Patient states that she has taken zofran in the past without complications or reactions
[2023-08-21 11:15] LABS: UTC Influenza A Antigen Negative (Negative); UTC Influenza B Antigen Negative (Negative)
[2023-08-21 11:19] VITALS: BP 125/76; PULSE 74; RESP 18; TEMP 36.7; O2SAT 98
[2023-08-21 13:26] LABS: Adenovirus F 40/41, stool Not Detected (NotDetected); Astrovirus Not Detected (NotDetected); Campylobacter Not Detected (NotDetected); Cryptosporidium Not Detected (NotDetected); Cyclospora Cayetanesis Not Detected (NotDetected); Entamoeba histolytica Not Detected (NotDetected); Enteroaggregative E coli Not Detected (NotDetected); Enteropathogenic E coli Not Detected (NotDetected); Enterotoxigenic E coli Not Detected (NotDetected); Giardia lamblia Not Detected (NotDetected); Norovirus Not Detected (NotDetected); Plesimonas Shigalloides, PCR Not Detected (NotDetected); Rotavirus A Not Detected (NotDetected); Salmonella, PCR Not Detected (NotDetected); Shiga-like toxin E coli Not Detected (NotDetected); Shigella Enterovasive E coli Not Detected (NotDetected); Vibrio Cholerae Not Detected (NotDetected); Vibrio, PCR Not Detected (NotDetected); Yersinia Entercolitica, PCR Not Detected (NotDetected)
[2023-08-25 14:48] LABS: Clostridium Difficile A/B, PCR Detected (NotDetected); Sapovirus Detected (NotDetected)
== END 2023-08-21 11:40 | disposition home or self-care (01) ==
PROVIDERS: Emergency Provider Nurse Practitioner; PCP Physician Assistant
DX: A04.72 Enterocolitis due to Clostridium difficile, not specified as recurrent (principal); A08.39 Other viral enteritis; R11.2 Nausea with vomiting, unspecified; R19.7 Diarrhea, unspecified; M79.18 Myalgia, other site; E03.9 Hypothyroidism, unspecified
CPT/HCPCS: 87507; 87635; 87804; 99212; 99214; G0463

== ENCOUNTER 2023-11-23 14:48 | Outpatient (POV) | payer BC, SELFPAY | END 2023-11-23 23:59 | disposition home or self-care (01) | LOC: SC 14:49 | PROVIDERS: Visit Provider Specialist/Technologist | DX: Z00.00 Encounter for general adult medical examination without abnormal findings (principal) ==

== ENCOUNTER 2023-12-10 13:53 | Outpatient (CLI) | payer BC, SELFPAY ==
--- NOTE | 2023-12-10 13:55 | CT_ITS ---
FINAL REPORT CLINICAL HISTORY: sinusitis COMPARISON: None FINDINGS: There is prominent mucoperiosteal thickening in the ethmoid air cells as well as the right maxillary sinus. There is fluid and debris present in the maxillary and sphenoid sinuses. The ostiomeatal unit on the left side is patent, while the right ostiomeatal unit is obstructed. IMPRESSION: Changes consistent with chronic sinusitis in the maxillary, ethmoid, and sphenoid sinuses bilaterally. Reviewed, Interpreted and Dictated by Mihai Alvarado MD Transcribed by Nely Mario Authenticated and . [facility]
== END 2023-12-10 23:59 | disposition home or self-care (01) ==
LOC: RAD 13:53
PROVIDERS: PCP Physician Assistant; Visit Provider Nurse Practitioner
DX: J32.9 Chronic sinusitis, unspecified (principal)
CPT/HCPCS: 70486

== ENCOUNTER 2024-03-23 16:46 | Outpatient (CLI) | payer BC, SELFPAY ==
[2024-03-23 17:19] LABS: Basophils # 0.1 K/mm3 (0-0.2); Basophils % 0.9 % (0.1-2.0); Eosinophils # 0.3 K/mm3 (0.0-0.4); Eosinophils % 2.4 % (0.1-12.0); Hematocrit 36.4 % (37.0-47.0); Hemoglobin 12.2 g/dL (12.2-16.2); Lymphocytes # 2.4 K/mm3 (0.7-4.5); Lymphocytes % 22.7 % (10-50); Mean Corpuscular HGB Conc 33.4 g/dL (31.8-35.4); Mean Corpuscular Volume 83.8 fl (81-99); Mean Platelet Volume 7.7 fl (7.4-10.4); Monocytes # 0.5 K/mm3 (0.1-1.0); Monocytes % 4.4 % (1.7-9.3); Neutrophils # 7.5 K/mm3 (1.8-7.8); Neutrophils % 69.7 % (37.0-80.0); Platelet Count 373 K/mm3 (142-424); Red Blood Count 4.34 M/mm3 (4.20-5.40); Red Cell Distribution Width 14.5 % (11.5-17.5); White Blood Count 10.7 K/mm3 (4.8-10.8)
[2024-03-23 17:49] LABS: Chloride 105 mmol/L (98-107); Sodium 138 mmol/L (136-145)
[2024-03-23 17:50] LABS: Potassium 3.9 mmoL/L (3.5-5.1)
[2024-03-23 17:53] LABS: Anion Gap 11.9 mEq/L (5-15); Blood Urea Nitrogen 14 mg/dl (7-17); Calcium 8.9 mg/dl (8.4-10.2); Carbon Dioxide 25 mmol/L (22.0-30.0); Estimated Glomerular Filt Rate 85 ml/min (>60); GFR (African American) 103 ML/MIN (>60); Glucose 74 mg/dl (74-100)
== END 2024-03-23 23:59 | disposition home or self-care (01) ==
LOC: LAB 16:48
PROVIDERS: PCP Physician Assistant; Visit Provider Otolaryngology
DX: J34.3 Hypertrophy of nasal turbinates (principal); J32.4 Chronic pansinusitis
CPT/HCPCS: 36415; 80048; 85025

== ENCOUNTER 2024-03-27 07:45 | Day surgery (SDC) | payer BC, SELFPAY ==
[2024-03-20 12:38] VITALS: BMI 33.4
--- NOTE | 2024-03-24 14:05 | SUR.PREOP ---
[id number] attempted to contact pt to have her arrive early for a CT scan per. MD Oglesby. unable to reach pt. pt's mother called and instructions given to her. her mother is her local driver for the procedure and will relay message.
[2024-03-27] VITALS (10 sets, daily range): BP systolic 118–146; BP diastolic 82–105; PULSE 62–75; RESP 14–18; TEMP 36.2–36.7; O2SAT 91–98
[2024-03-27] MEDS: LACTATED RINGERS 1000ML 1,000 ML 100 ML IV (08:29)
[2024-03-27 08:41] LABS: Urine Pregnancy, HCG Qual. Negative (Negative)
[2024-03-27] MEDS: OXYMETAZOLINE NASAL SPRAY 0.05% 15ML 15 ML NS (10:00)
[2024-03-27] MEDS: 0.9 % SODIUM CHLORIDE 1000ML 1,000 ML 25 ML IV (10:40)
[2024-03-27] MEDS: LIDOCAINE 1% W/EPI 1:100,000 20ML VIAL 20 ML (10:57)
[2024-03-27] MEDS: OXYMETAZOLINE NASAL SPRAY 0.05% 15ML 30 ML NS (10:58)
[2024-03-27] MEDS: CEFAZOLIN SODIUM 2 GM in 0.9 % SODIUM CHLORIDE 100 ML IV (10:58)
[2024-03-27] MEDS: MUPIROCIN 2% OINTMENT 22GM TUBE 22 GM TP (11:15)
--- NOTE | 2024-03-27 11:24 | P.OP_ITS ---
Date of procedure: 03/27/24 Pre-op Diagnosis:: Chronic pansinusitis Right inferior turbinate hypertrophy Post-op Diagnosis:: Same Procedure performed:: 1. Use of image guided system 2. Left endoscopic frontal ethmoidectomy with tissue removal 3. Right endoscopic total ethmoidectomy 4. Bilateral endoscopic middle meatal antrostomy with tissue removal 5. Right submucosal resection inferior turbinate Surgeon:: Nhan Oglesby III, MD Streetsweeper Operator(s):: none ARMORED CAR GUARD AND DRIVER:: Renny Jon Anesthesia: GETA Estimated blood loss (mL): 30 Operative findings:: chronic pansinusitis Operative note:: Patient was brought to the operating placed for general endotracheal anesthesia with IV sedation. Nose was prepared with topical Afrin and lidocaine on cottonoids along with a injection of 1% lidocaine without epinephrine into the lateral nasal reid. The Pi[employer] image guided system was then calibrated and gave us good feedback throughout the case. Patient's nose was repaired and draped in usual fashion. The cottonoids were removed from the right side of the nose. Further injection was carried out along the lateral nasal wall. The image guided system give us good information for approaching the ethmoid bulla on the right this was open and the sinus contents were exonerated. There was significant amount of polypoid tissue throughout the sinus. The middle meatus is then probed and opened widely using a backbiting down-biting instrument. Again polypoid tissue was removed from the medial portion of the sinus. I then injected 1% lidocaine with epinephrine into the inferior turbinate using a 2 mm turbinate shaver blade I did a submucosal resection at the head of the inferior turbinate and then extended this more posteriorly for the midportion of the turbinate. Nova pack pack was then introduced into the right side of the nose and infiltrated with lidocaine. Mupirocin ointment was then placed on the right. Attention was then turned towards the left side. Septum was displaced to the left this was infractured towards the midline. The anterior ethmoid bulla was entered large amount of polypoid tissue removed from the anterior and posterior ethmoid sinuses. Once this was clear the agar nasi cells were removed. Using the nasofrontal probe was able to open into the nasofrontal recess on the left side. Polypoid tissue around this area was then removed using a giraffe forceps. Middle meatus was then probed and opened widely using a backbiting down-biting instrument. This tissue was also removed for pathologic valuation. Once this was completed a nova pack pack was placed on the left side. Lidocaine was used to infiltrate the packing. Mupirocin ointment was placed as a topical dressing. Patient stomach contents were aspirated clear. She was awakened operating taken recovery good condition. The estimated blood loss less than 30 mL. Condition: stable Disposition: PACU Complications:: None
--- NOTE | 2024-03-27 11:33 | P.PNANES_ITS ---
[facility] Disclaimer: The information contained in this section may have been updated after the patient was seen, as this information can be updated by other users. Medical History Nasal turbinate hypertrophy Chronic pansinusitis Chronic maxillary sinusitis Chronic frontal sinusitis Chronic ethmoidal sinusitis Cerumen impaction Conductive hearing loss Depression Anxiety Thyroid disease Surgical History History of tympanostomy tube placement Family History Other No significant family history Social History (Updated 03/27/24 @ 08:27 by Eliza Osorio RN) Smoking Status: Never smoker alcohol intake: never substance use type: denies use current occupational status: employed and other Travel in the last 8 weeks: None household members: family housing: house [facility] Anesthesia Checklist Patient Identification Patient Identification: Arm Band Structural Data Admitted From: Home Planned Operative Procedure/s: Endoscopic Sinus Surgery Consent for Planned Operative Procedure(s) Verified: Yes Verified Documents: Surgical Consent and History and Physical NPO Status Verified Time NPO: 00:00 Additional verifications Anesthesia Reactions: No Hx Blood Transfusions: Yes Blood Transfusion Reaction: Yes Airway Assessment Mallampati Score:: Class II C-Spine Mobility Assessed: Yes TMJ Mobility Assessed: Yes Dentition: Good Dentition Neurological Assessment Level of Consciousness: Awake, Alert and Appropriate Anesthesia Plan Anesthesia Risk discussed: Yes Anesthesia Plan: Verified ASA Class: II Anesthesia Type: General
--- NOTE | 2024-03-27 11:34 | P.PNANES_ITS ---
[facility] Anesthesia Record Part I Anesthesia Record I Intake, IV Amount: 1,400 Hydration: Adequate Estimated blood loss (mL): 5 Urine output (mL): 0 Blood Products used (#): none Blood Pressure: 140/105 SaO2: 91 Pulse Rate: 74 Airway Patency: Patent Respiratory Rate: 16 Temperature: 98.1 F Patient is:: Drowsy and Stable Stable to PACU at:: 11:30
[2024-03-27] MEDS: KETOROLAC 30MG/ML VIAL 30 MG IV (11:48)
[2024-03-27] MEDS: ONDANSETRON 4MG/2ML VIAL 4 MG IV (11:49)
--- NOTE | 2024-03-28 08:19 | EXP.ANES.II ---
[facility] Anesthesia Record Part II Anesthesia Record Part II Discharge Time: 12:00 Destination: Surgical Day Care (OP Surgery) PACU nurse assessment reviewed?: Yes Patient Condition:: Good Anesthesia Complications:: None Swallowing reflex intact?: Yes Airway Patency: Patent Cyanosis?: No Blood Pressure: 120/90 SaO2: 98 Respiratory Rate: 16 Pulse Rate: 64 Temperature: 97.1 F Mental Status: Alert & Oriented Pain level:: 4 Nausea and/or vomitting:: None Intake, IV Amount: 0 Hydration: Adequate
[2024-03-28 08:20] VITALS: BP 120/90; PULSE 64; RESP 16; TEMP 36.2; O2SAT 98
== END 2024-03-27 12:35 | disposition home or self-care (01) ==
PROVIDERS: PCP Physician Assistant; Visit Provider Otolaryngology
PROC: (CPT 30520; principal; 2024-03-27 10:00)
DX: J32.4 Chronic pansinusitis (principal); J34.3 Hypertrophy of nasal turbinates
CPT/HCPCS: 31253; 31254; 31267; 30140; 61782; 81025; J3490; J1100; J1885; J2250; J2405; J3010; J7120

== ENCOUNTER 2024-03-28 14:47 | Emergency (ER) | payer BC, SELFPAY ==
[2024-03-28 14:48] VITALS: BP 115/78; PULSE 85; RESP 19; TEMP 36.8; O2SAT 98; BMI 30.4
--- NOTE | 2024-03-28 15:21 | HMH.EDGENADL ---
Discharge Plan Disposition Patient Disposition: Home, Self-Care Prescriptions Prescriptions: New promethazine 12.5 mg suppository 12.5 mg RI TID PRN (Reason: nausea and vomiting) Qty: 12 0RF Rx Instructions: do not give 3rd daily dose after evening meal or within 4hr before bed promethazine 25 mg tablet 25 mg PO TID PRN (Reason: nausea and vomiting) 5 Days Qty: 20 0RF No Action levothyroxine 25 mcg capsule 25 mcg PO DAILY escitalopram oxalate 20 mg tablet PO DAILY Nexplanon 68 mg implant subdermal escitalopram oxalate [Lexapro] 10 mg Tablet 10 mg PO DAILY hydrocodone-acetaminophen 7.5-325 mg tablet 1 tab PO Q4H PRN (Reason: pain) Qty: 10 0RF ondansetron 4 mg tablet,disintegrating 4 mg PO Q4H PRN (Reason: nausea and vomiting) Qty: 10 0RF Referrals Follow up/Referrals: Renetta Palma PA [Primary Care Provider] - See instructions Activity Restrictions/Add. Instructions Additional Instructions/Restrictions: There is no evidence of critical ongoing postoperative bleeding. Please apply direct pressure and use Afrin as discussed. Regarding the abdominal discomfort and nausea this is most likely secondary to swallowing of the recent blood from postoperative bleeding. Please take your Zofran first and if you are not tolerating p.o. you may use Phenergan if you are still not tolerating p.o. you may use the Phenergan suppositories. I recommend that you do not take Phenergan in addition to the pain medicine as it may be overly sedating. Return with any significant abdominal pain inability tolerate anything by mouth or other concerns. Otherwise you may follow-up with your ENT doctor as previously instructed. Clinical Impressions Clinical Impression: Post-op bleeding, Nausea & vomiting Print Language Print Language: [place] Discharge ED Provider: Mallory Vasquez General Adult HPI General Stated complaint: Surg. 03/27/24, vomiting blood, stomach pain, diarr Time Seen by Provider: 03/28/24 15:04 History of Present Illness HPI narrative: Patient is a 29-year-old female presents today with abdominal discomfort nausea and vomiting following recent sinus surgery. She states that she had some bleeding and she was trying to spit up most of the blood but is swallowed some of it and has had some dark stool since that time. Surgery as yesterday was largely to clean out her sinuses but and polyps were removed. Bleeding has since significantly slowed down/stopped. She has been applying some Afrin at home with some pressure. Denies any abdominal pain nausea and vomiting prior to the surgery. Denies any other past medical history she is not on any anticoagulants or antiplatelets. She has tried some oral Zofran at home without any significant improvement in her nausea. Related Data Home Medications ?Medication ?Instructions ?Recorded ?Confirmed levothyroxine 25 mcg capsule 25 mcg PO DAILY HYPOTHYROID 06/27/21 01/17/24 escitalopram oxalate 20 mg tablet mg PO DAILY 11/23/23 01/17/24 etonogestrel 68 mg subdermal subdermal 01/17/24 01/17/24 implant (Nexplanon) escitalopram oxalate 10 mg tablet 10 mg PO DAILY 03/20/24 03/20/24 (Lexapro) Previous Rx's ?Medication ?Instructions ?Recorded hydrocodone 7.5 mg-acetaminophen 1 tab PO Q4H PRN pain #10 tabs 03/27/24 325 mg tablet ondansetron 4 mg disintegrating 4 mg PO Q4H PRN nausea and 03/27/24 tablet vomiting #10 tabs promethazine 12.5 mg rectal 12.5 mg RI TID PRN nausea and 03/28/24 suppository vomiting #12 ea promethazine 25 mg tablet 25 mg PO TID PRN nausea and 03/28/24 vomiting 5 days #20 tabs Allergies Allergy/AdvReac Type Severity Reaction Status Date / Time No Known Allergies Allergy Verified 03/27/24 08:31 [facility] Disclaimer: The information contained in this section may have been updated after the patient was seen, as this information can be updated by other users. Medical History (Updated 03/28/24 @ 15:20 by Mallory Vasquez MD) Nasal turbinate hypertrophy Chronic pansinusitis Chronic maxillary sinusitis Chronic frontal sinusitis Chronic ethmoidal sinusitis Cerumen impaction Conductive hearing loss Depression Anxiety Thyroid disease Surgical History History of tympanostomy tube placement Family History Other No significant family history Social History (Updated 03/27/24 @ 08:27 by Eliza Osorio RN) Smoking Status: Never smoker alcohol intake: never substance use type: denies use current occupational status: employed and other Travel in the last 8 weeks: None household members: family housing: house ROS Obtained: Yes All systems reviewed & no additional complaints except as documented Physical Exam General General appearance: alert and in no apparent distress ENT ENT exam: Present other (No significant ongoing hemorrhage in the anterior posterior nasopharynx or oropharynx) Respiratory Respiratory exam: Present normal lung sounds bilaterally Cardiovascular Cardiovascular exam: Present regular rate and normal rhythm Abdominal Exam Abdominal exam: Present soft; Absent distention Neurological Exam Neurological exam: Present alert and oriented X3 Medical Decision Making Jason Inquiry Pt receiving controlled substance: No Orders (Tests/Meds): ED MEDICATIONS Discontinued Medications Generic Name Dose Route Start Last Admin Trade Name Freq PRN Reason Stop Dose Admin Promethazine HCl 12.5 mg 03/28/24 15:17 Promethazine Hcl 25mg/Ml 1ml Vial IM 03/28/24 15:18 ONCE ONE Sodium Chloride 25 ml 03/28/24 15:17 Sodium Chloride 0.9% 25ml Bag IV 03/28/24 15:18 ONCE ONE Medical Decision Narrative: Very well-appearing 29-year-old female presented with a benign exam evidence of recent bleeding in her nasal sinuses. This seems to have stopped at this point. She has no coagulopathies is not on any antiplatelets or anticoagulation. She is hemodynamically stable and very well-appearing I do not suspect she is lost any significant mount of blood that would require transfusion. Additionally her abdominal exam is benign and she has had some GI irritation in the setting of swallowing blood. I do not suspect that she has a concomitant upper gastrointestinal bleed or abdominal emergency given the association with the surgery which occurred yesterday and the associated swallowing of blood. I suspect that her GI irritation/upset is secondary to swallowing of blood. Therefore no emergency workup is indicated at the moment. 2 attempts by nursing staff were done regarding IV access and I offered to give her IV fluids but she declined at this point. I offered to do an ultrasound-guided IV and again she declined. She would like to try Phenergan which we will give IM and we will give medications at home in addition to her Zofran. She has been advised to take Zofran first and then oral Phenergan and if that is still not working she has been prescribed Phenergan suppositories. If she has any significant worsening of her symptoms I have advised that she return to the emergency department. Again this is very unlikely to be a primary abdominal problem she is aware of this and will return if significant worsening of her symptoms. She will also follow-up with her ENT doctor as previously instructed. Critical Care Critical Care Time Critical Care Time: No
[2024-03-28] MEDS: PROMETHAZINE HCL 25MG/ML 1ML VIAL 12.5 MG IM (15:28)
[2024-03-28 15:40] VITALS: BP 124/67; PULSE 78; RESP 18; TEMP 37.1; O2SAT 96
== END 2024-03-28 15:48 | disposition home or self-care (01) ==
PROVIDERS: Emergency Provider Student in an Organized Health Care Education/Training Program; PCP Physician Assistant
DX: L76.22 Postprocedural hemorrhage of skin and subcutaneous tissue following other procedure (principal); R11.2 Nausea with vomiting, unspecified
CPT/HCPCS: 96372; 99283; J2550

== ENCOUNTER 2024-12-31 17:04 | Emergency (ER) | payer BC, SELFPAY ==
[2024-12-31 17:12] VITALS: BP 108/91; PULSE 124; RESP 20; TEMP 37.2; O2SAT 99; BMI 34.4
--- NOTE | 2024-12-31 17:23 | [facility].EDGENADL ---
Discharge Plan Disposition Patient Disposition: Home, Self-Care Prescriptions Prescriptions: New ondansetron 4 mg tablet,disintegrating 4 mg PO Q6H PRN (Reason: nausea and vomiting) Qty: 10 0RF No Action levothyroxine 25 mcg capsule 25 mcg PO DAILY escitalopram oxalate 20 mg tablet PO DAILY Nexplanon 68 mg implant subdermal azelastine 137 mcg (0.1 %) spray,non-aerosol 1 spray intranasal BID Qty: 30 6RF Rx Instructions: administer into each nostril ondansetron 4 mg tablet,disintegrating 4 mg PO Q4H PRN (Reason: nausea and vomiting) Qty: 10 0RF promethazine 25 mg tablet 25 mg PO TID PRN (Reason: nausea and vomiting) 5 Days Qty: 20 0RF Referrals Follow up/Referrals: Renetta Palma PA [Primary Care Provider] - See instructions Dontrell Roy II, MD [Staff Physician] - See instructions Activity Restrictions/Add. Instructions Additional Instructions/Restrictions: Call your family doctor to establish care for this visit to the emergency department and schedule follow-up within 48 hours to ensure improvement. If you have any worsening of your condition or any other concerning signs or symptoms, return to the emergency department or your primary care doctor for further evaluation. Follow-up with gastroenterology, Dr. Roy. Information here Clinical Impressions Clinical Impression: Vomiting, Diarrhea Instructions Patient Instructions: DI for Acute Abdominal Pain Print Language Print Language: Colombian Discharge ED Provider: Zelalem Jha General Adult HPI General Chief complaint: Abdominal Pain Stated complaint: stomache pain v/d sweating, bodyaches Time Seen by Provider: 12/31/24 17:07 Mode of Arrival: Ambulatory Source of Information: Patient Description of Symptoms (Recalled from ER Triage Doc. by RN): pt has celiac. c/o belly pain which radiates to both sides. vomiting,diarrhea History of Present Illness HPI narrative: Please note that above description of symptoms, in this electronic medical record under categorization of recalled from ER triage doctor by RN are reflective of an initial nursing assessment, however, is not reflective of my full history and physical exam that was personally taken and clarified. Consequentially, this preceding description of symptoms, which may include the patient's categorized chief complaint in the EMR, do not reflect my personal clinical impression, and the ultimate description of history of present illness and patient stated complaints should be deferred to this section of the note. Unless stated otherwise or congruent with this section of the note, additional signs, symptoms, or incongruence should be interpreted as inaccurate with my clinical impression. Related Data Home Medications ?Medication ?Instructions ?Recorded ?Confirmed levothyroxine 25 mcg capsule 25 mcg PO DAILY HYPOTHYROID 06/27/21 05/29/24 escitalopram oxalate 20 mg tablet mg PO DAILY 11/23/23 05/29/24 etonogestrel 68 mg subdermal subdermal 01/17/24 05/29/24 implant (Nexplanon) Previous Rx's ?Medication ?Instructions ?Recorded ondansetron 4 mg disintegrating 4 mg PO Q4H PRN nausea and 03/27/24 tablet vomiting #10 tabs promethazine 25 mg tablet 25 mg PO TID PRN nausea and 03/28/24 vomiting 5 days #20 tabs azelastine 137 mcg (0.1 %) nasal 1 spray intranasal BID #30 mL 05/29/24 spray ondansetron 4 mg disintegrating 4 mg PO Q6H PRN nausea and 12/31/24 tablet vomiting #10 tabs Allergies Allergy/AdvReac Type Severity Reaction Status Date / Time No Known Allergies Allergy Verified 05/29/24 14:51 PFS PFS Disclaimer: The information contained in this section may have been updated after the patient was seen, as this information can be updated by other users. Medical History (Updated 12/31/24 @ 18:55 by Zelalem Jha MD) Allergic rhinitis Nasal turbinate hypertrophy Chronic pansinusitis Chronic maxillary sinusitis Chronic frontal sinusitis Chronic ethmoidal sinusitis Cerumen impaction Conductive hearing loss Depression Anxiety Thyroid disease Surgical History Status post functional endoscopic sinus surgery (FESS) History of tympanostomy tube placement Family History Other No significant family history Social History Smoking Status: Never smoker alcohol intake: never substance use type: denies use current occupational status: employed and other Travel in the last 8 weeks?: None household members: family housing: house Have you lived/traveled outside [place] in past 30 days?: No Contact w/someone who lives/traveled outside [place] past 30 days?: No Exposure to someone with infectious disease in past 14 days?: No Do you have a fever (greater than 100.4 F or 38 C)?: No Have you tested positive for COVID-19?: No Exposed to someone with COVID-19 in past 14 days?: Yes Do you have a sore throat?: No Do you have a cough?: No Do you have any weakness?: Yes Do you have any diarrhea?: Yes Are you experiencing any unusual bleeding?: No Do you have any muscle aches/pain?: Yes Do you have any abdominal pain?: Yes Are you experiencing loss of taste or smell?: No Other Medical History Have you received the Pneumonia Vaccine: No ROS Obtained: Yes All systems reviewed & no additional complaints except as documented Physical Exam General General appearance: alert, in no apparent distress and obese Head Head exam: atraumatic and normocephalic Eye Eye exam: Present normal appearance, PERRL and EOMI Neck Neck exam: Present normal inspection, full ROM and trachea midline Respiratory Respiratory exam: Absent respiratory distress, wheezes, stridor, accessory muscle use or prolonged expiratory phase Cardiovascular Cardiovascular exam: Present other (Pulses equal symmetric in upper and lower extremities) Abdominal Exam Abdominal exam: Present soft; Absent distention, tenderness or pulsatile mass Extremities Exam Extremities exam: Absent edema Neurological Exam Neurological exam: Present alert, oriented X3 and CN II-XII intact; Absent motor sensory deficit Skin Skin exam: Present warm and dry; Absent diaphoresis or erythema Medical Decision Making Medical Records Medical records reviewed: Yes I reviewed the patient's medical records. Screening: Per USPSTF and CDC recommendations, given the prevalence of disease in our region, it is our hospital?s policy to screen for HIV and viral Hepatitis for all patients aged 18 and over and those with ongoing risk factors. Jason Inquiry Pt receiving controlled substance: No Jason was queried for this patient: No Vital Signs: 12/31/24 17:12 12/31/24 17:30 12/31/24 18:00 Temperature 98.9 F Temperature Source Oral Pulse Rate 123 H 101 H Pulse Rate [Right] 124 H Respiratory Rate 20 Blood Pressure 118/87 106/75 L Blood Pressure [Right Arm] 108/91 L Blood Pressure Mean [Right Arm] 96 02 Sat by Pulse Oximetry 99 98 99 Oxygen Delivery Method Room Air Room Air 12/31/24 18:30 Temperature Temperature Source Pulse Rate 88 Pulse Rate [Right] Respiratory Rate Blood Pressure 106/79 L Blood Pressure [Right Arm] Blood Pressure Mean [Right Arm] 02 Sat by Pulse Oximetry 99 Oxygen Delivery Method Room Air Lab Data Lab Results 12/31/24 17:19: WBC 12.1 H, RBC 5.59 H, Hgb 15.6, Hct 46.4, MCV 83.0, MCH 27.9, MCHC 33.6, RDW 13.3, Plt Count 509 H, MPV 9.3, Neut % (Auto) 67.9, Lymph % (Auto) 25.3, [place] % (Auto) 4.2, Eos % (Auto) 1.4, Baso % (Auto) 0.5, Neut # (Auto) 8.2 H, Lymph # (Auto) 3.1, [place] # (Auto) 0.5, Eos # (Auto) 0.2, Baso # (Auto) 0.1, Sodium 139, Potassium 3.8, Chloride 109 H, Carbon Dioxide 21 L, Anion Gap 12.8, BUN 11, Creatinine 0.70, Estimated Creat Clear 172, Estimated GFR 100, Est GFR ( Amer) 121, Glucose 132 H, Calcium 9.4, Total Bilirubin 0.6, AST 35, ALT 38, Alkaline Phosphatase 92, Total Protein 7.5, Albumin 4.7, Globulin 2.8, Albumin/Globulin Ratio 1.7, Lipase 72, HCG, Quant < 2 12/31/24 17:38: Urine Color Yellow, Urine Appearance Clear, Urine pH 6.0, Ur Specific [place] >= 1.030, Urine Protein 2+ A, Urine Glucose (UA) Negative, Urine Ketones 1+, Urine Blood Negative, Urine Nitrate Negative, Urine Bilirubin 1+ A, Urine Urobilinogen 1.0, Ur Leukocyte Esterase Negative, Urine RBC None, Urine WBC 3-5, Ur Squamous Epith Cells 10-20, Urine Bacteria 2+ 12/31/24 17:19 12/31/24 17:19 Orders (Tests/Meds): ED MEDICATIONS Generic Name Dose Route Start Last Admin Trade Name Freq PRN Reason Stop Dose Admin Dextrose/Sodium Chloride 1,000 mls @ 500 mls/hr 12/31/24 17:14 12/31/24 17:35 Dextrose 5%-0.9% Nacl Iv Soln IV 12/31/24 19:13 500 mls/hr .Q2H ONE Administration Sodium Chloride 8 ml 12/31/24 17:11 Sodium Chloride 0.9% 10ml Vial IV 01/30/25 17:10 NEEDED PRN dilute pepcid Discontinued Medications Generic Name Dose Route Start Last Admin Trade Name Freq PRN Reason Stop Dose Admin Dexamethasone Sodium Phosphate 10 mg 12/31/24 17:11 12/31/24 17:35 Dexamethasone 4mg/Ml 1ml Vial IV 12/31/24 17:12 10 mg ONCE ONE Administration Famotidine 20 mg 12/31/24 17:11 12/31/24 17:34 Famotidine 20mg/2ml Vial IV 12/31/24 17:12 20 mg ONCE ONE Administration Ketorolac Tromethamine 15 mg 12/31/24 17:11 12/31/24 17:35 Ketorolac 30mg/Ml Vial IV 12/31/24 17:12 15 mg ONCE ONE Administration Ondansetron HCl 4 mg 12/31/24 17:11 12/31/24 17:35 Ondansetron 4mg/2ml Vial IV 12/31/24 17:12 4 mg ONCE ONE Administration ORDERS Category Date Time Status CBC w/Auto Diff [Complete Blood Count Auto Diff] Stat Lab 12/31/24 17:19 Completed CMP [Comprehensive Metabolic Panel] Stat Lab 12/31/24 17:19 Completed HCG,Quantitative Stat Lab 12/31/24 17:19 Completed HIV Combo Stat Lab 12/31/24 17:19 Received Hepatitis C Ab Qual. W/ RFX Stat Lab 12/31/24 17:19 Received Lipase Stat Lab 12/31/24 17:19 Completed UA [Urinalysis and Microscopic] Stat Lab 12/31/24 17:38 Completed Urine Culture Stat Micro 12/31/24 17:38 Received Medical Decision Narrative: 29-year-old female with history of gluten intolerance/celiac disease presenting with vomiting. She states that she had fried worse of soy sauce just prior to arrival a couple of hours. She started vomiting shortly after that and has been vomiting nearly nonstop since that time. No blood in her vomit she is also been having diarrhea. Since that time, she started developing left-sided abdominal pain greater than right that is near gone when she is not vomiting, but made worse with vomiting and diarrhea. Came in for further evaluation due to inability to tolerate any p.o. intake. Has Nexplanon in her arm, last period was 2 weeks ago and normal for her, no urinary complaints, no history of surgical procedures on the abdomen, no recent travel, no sick contacts, or any other relevant history. History was obtained via conversation with patient. On arrival, patient hemodynamically stable, alert, oriented x4, appropriate, GCS 15, moving all extremities spontaneously, pupils equal and reactive to light. Full physical exam performed and significant for uncomfortable appearing female who is in no acute distress. Speaking full sentences. She is obese, appears to be feeling unwell, but not actively retching. Abdomen is soft, nontender, nondistended on my exam. No evidence of peritonitis. No flank tenderness. No overlying skin changes. Differential includes gastritis, gastroenteritis, PUD, , urinary tract infection, nephrolithiasis, pancreatitis, ectopic , colitis, gluten intolerance, less likely to be small bowel obstruction, hollow viscus perforation, among others. Patient placed on continuous cardiac monitoring and continuous pulse ox with initial blood pressure 108/91, heart rate 124, saturation 99%. Patient was given Pepcid, Toradol, Decadron, dextrose containing IV fluids for symptomatic management and correction of underlying abnormalities. Workup independently interpreted and significant for nonactionable hematologic labs. Kidney function normal. Lipase and hCG negative. Urinalysis nonconcerning for UTI. No blood. On reevaluation, patient states she is feeling much better, able to tolerate p.o. intake and looking very well. CT imaging of the abdomen and pelvis was considered, but not deemed necessary. Patient with complete symptomatic improvement. I feel like this is likely the result of gluten intake in the setting of celiac disease. Given patient presentation, workup, history, this most likely represents food intolerance versus gastroenteritis. Because patient at baseline without signs or symptoms of clinical decompensation, deemed appropriate for discharge. Results were relayed to patient who voiced understanding and were agreeable to outpatient management and follow up. I discussed my clinical impression with patient and answered all questions. At this time, the evidence for any other entities in the differential is insufficient to warrant any further testing or ED observation. This was explained as well. Advisory was given that persistent or worsening symptoms require further evaluation. I confirmed the understanding of this discussion. [employer] disclaimer Much of this encounter note is an electronic motor coach supervisor spoken language to printed text. Electronic motor coach supervisor of the spoken language may permit errors. Although I have reviewed the note, some errors may still exist. Critical Care Critical Care Time Critical Care Time: No
[2024-12-31 17:27] LABS: Basophils # 0.1 K/mm3 (0-0.2); Basophils % 0.5 % (0.1-2.0); Eosinophils # 0.2 Kmm3 (0.0-0.4); Eosinophils % 1.4 % (0.1-12.0); Hematocrit 46.4 % (37.0-47.0); Hemoglobin 15.6 g/dL (12.2-16.2); Immature Granulocytes # 0.08 10^3uL; Immature Granulocytes % 0.7 %; Lymphocytes # 3.1 K/mm3 (0.7-4.5); Lymphocytes % 25.3 % (10-50); Mean Corpuscular HGB Conc 33.6 g/dL (31.8-35.4); Mean Corpuscular Hemoglobin 27.9 pg (27.0-31.2); Mean Platelet Volume 9.3 fl (7.4-10.4); Monocytes # 0.5 K/mm3 (0.1-1.0); Monocytes % 4.2 % (1.7-9.3); Neutrophils # 8.2 K/mm3 (1.8-7.8); Neutrophils % 67.9 % (37.0-80.0); Nucleated Red Blood Cells # 0 10^3/uL; Nucleated Red Blood Cells % 0 %; Platelet Count 509 K/mm3 (142-424); Red Blood Count 5.59 M/mm3 (4.20-5.40); Red Cell Distribution Width 13.3 % (11.5-17.5); Red Cell Distribution Width-SD 39.8 fL; White Blood Count 12.1 K/mm3 (4.8-10.8)
[2024-12-31 17:30] VITALS: BP 118/87; PULSE 123; O2SAT 98
[2024-12-31 17:34] LABS: Albumin Level 4.7 g/dl (3.5-5.0); Chloride 109 mmol/L (98-107); Potassium 3.8 mmoL/L (3.5-5.1); Sodium 139 mmol/L (136-145)
[2024-12-31] MEDS: FAMOTIDINE 20MG/2ML VIAL 20 MG IV (17:34)
[2024-12-31] MEDS: DEXAMETHASONE 4MG/ML 1ML VIAL 10 MG IV (17:35)
[2024-12-31] MEDS: KETOROLAC 30MG/ML VIAL 15 MG IV (17:35)
[2024-12-31] MEDS: Dextrose 5 % and 0.9 % NaCl 1,000 ML 500 ML IV (17:35)
[2024-12-31] MEDS: ONDANSETRON 4MG/2ML VIAL 4 MG IV (17:35)
[2024-12-31 17:37] LABS: Alanine Aminotransferase 38 U/L (12-78); Albumin/Globulin Ratio 1.7 (1.1-1.8); Alkaline Phosphatase 92 U/L (38-126); Anion Gap 12.8 mEq/L (5-15); Aspartate Amino Transferase 35 U/L (14-36); Bilirubin,Total 0.6 mg/dl (0.2-1.3); Blood Urea Nitrogen 11 mg/dl (7-17); Carbon Dioxide 21 mmol/L (22.0-30.0); Creatinine Clearance Estimated 172 mL/min (50-200); Estimated Glomerular Filt Rate 100 ml/min (>60); GFR (African American) 121 ML/MIN (>60); Globulin 2.8 g/dL (1.3-3.2); Lipase 72 U/L (23-300); Total Protein,Serum 7.5 g/dl (6.3-8.2)
[2024-12-31 17:38] LABS: Calcium 9.4 mg/dl (8.4-10.2); Glucose 132 mg/dl (74-100)
[2024-12-31 17:43] LABS: Appearance,Urine CLEAR (Clear); Blood, Urine Negative (Negative); Color,Urine YELLOW (Yellow); Glucose,Urine (UA) Negative (Negative); Ketones,Urine 1+ (Negative); Leukocyte Esterase,Urine Negative (Negative); Microscopic, Urine URINE MICROSCOPIC (MICROSCOPIC); Nitrate,Urine Negative (Negative); Protein,Urine 2+ (Negative)
[2024-12-31 17:56] LABS: Specific Gravity, Urine >= 1.030 (1.005-1.030)
[2024-12-31 18:00] VITALS: BP 106/75; PULSE 101; O2SAT 99
[2024-12-31 18:02] LABS: Bilirubin,Urine 1+ (Negative)
[2024-12-31 18:03] LABS: HCG,Quantitative < 2 mIU/ml (0-5.42)
[2024-12-31 18:04] LABS: Bacteria,Urine 2+ /lpf
[2024-12-31 18:30] VITALS: BP 106/79; PULSE 88; O2SAT 99
[2024-12-31 19:07] VITALS: BP 118/74; PULSE 80; RESP 20; TEMP 36.8; O2SAT 98
[2024-12-31 19:09] LABS: HIV Combo NEGATIVE (Negative)
[2024-12-31 19:17] LABS: Hepatitis C Ab Qual. W/ RFX NEGATIVE (Negative)
== END 2024-12-31 19:08 | disposition home or self-care (01) ==
PROVIDERS: Emergency Provider Emergency Medicine; PCP Physician Assistant
DX: R10.9 Unspecified abdominal pain (principal); R11.2 Nausea with vomiting, unspecified; R19.7 Diarrhea, unspecified; Z11.59 Encounter for screening for other viral diseases; Z11.4 Encounter for screening for human immunodeficiency virus [HIV]
CPT/HCPCS: 80053; 81001; 83690; 84702; 85025; 86803; 87086; 87389; 96365; 96366; 96375; 99284; J1100; J1885; J2405; J7042